=== PATIENT | female | born 1980 | race Caucasian/White ===

== ENCOUNTER 2016-07-30 09:39 | Outpatient (CLI) | payer OTHER ==
--- NOTE | 2016-07-30 09:58 | ER Document Report ---
ED Medical Screen (RME) - General Stated Complaint: SHORTNESS OF BREATH, ABNORMAL LABS Time seen by provider: 09:56 Mode of Arrival: Ambulatory Information source: Patient Notes: 36-year-old female presents to ED for anemia. Her surgery was canceled due to the low H&H. She states that her her hemoglobin was 5.8. She was supposed to have surgery for to remove fibroid uterus which they canceled she states she's having excessive vaginal bleeding. States they started her on control and iron pills. I have greeted and performed a rapid initial assessment of this patient. A comprehensive ED assessment and evaluation of the patient, analysis of test results and completion of medical decision making process will be conducted by an additional ED providers. - Related Data Allergies/Adverse Reactions: No Known Allergies Allergy (Unverified 07/30/16 09:56) Physical Exam - Vital signs Vitals: Temp Pulse Resp BP Pulse Ox 97.6 F 82 14 128/84 H 100 07/30/16 09:42 07/30/16 09:42 07/30/16 09:42 07/30/16 09:42 07/30/16 09:42 Course - Vital Signs Vital signs: Temp Pulse Resp BP Pulse Ox 97.6 F 82 14 128/84 H 100 07/30/16 09:42 07/30/16 09:42 07/30/16 09:42 07/30/16 09:42 07/30/16 09:42
[2016-07-30 10:32] LABS: APPEARANCE,URINE SLIGHTLY-CLOUDY; BILIRUBIN,URINE NEGATIVE (NEGATIVE); GLUCOSE, URINE NEGATIVE (NEGATIVE); KETONES,URINE NEGATIVE (NEGATIVE); LEUKOCYTE ESTERASE,URINE MODERATE (NEGATIVE); NITRITE,URINE NEGATIVE (NEGATIVE); PROTEIN,URINE NEGATIVE (NEGATIVE); URINE SPECIFIC GRAVITY 1.014; UROBILINOGEN,URINE NEGATIVE mg/dL (<2.0)
[2016-07-30 10:39] LABS: ABSOLUTE EOSINOPHILS # (AUTO) 0.1 10^3/uL (0.0-0.6); ABSOLUTE LYMPHOCYTES (AUTO) 1.5 10^3/uL (0.5-4.7); ABSOLUTE MONOCYTES (AUTO) 0.4 10^3/uL (0.1-1.4); ABSOLUTE NEUT (AUTO) 2.9 10^3/uL (1.7-8.2); BASOPHILS % (AUTO) 0.8 % (0-2); EOSINOPHILS % (AUTO) 2.5 % (0-6); HEMATOCRIT 22.6 % (36.0-47.0); HGB HCT DIFFERENCE -3.7; LYMPHOCYTES % (AUTO) 29.8 % (13-45); MEAN CORPUSCULAR HEMOGLOBIN 15.2 pg (27.0-33.4); MONOCYTES % (AUTO) 8.9 % (3-13); RED BLOOD COUNT 4.18 10^6/uL (3.72-5.28); RED CELL DISTRIBUTION WIDTH 20.7 % (11.5-14.0)
[2016-07-30 10:49] LABS: MEAN CORPUSCULAR VOLUME 54 fl (80-97)
[2016-07-30 10:53] LABS: ALANINE AMINOTRANSFERASE 31 U/L (9-52); ALBUMIN 4.4 g/dL (3.5-5.0); ALKALINE PHOSPHATASE 50 U/L (38-126); ANION GAP 9 (5-19); ASPARTATE AMINO TRANSFERASE 19 U/L (14-36); BLOOD UREA NITROGEN 13 mg/dL (7-20); CALCIUM 9.7 mg/dL (8.4-10.2); CARBON DIOXIDE 24 mmol/L (22-30); CHLORIDE 106 mmol/L (98-107); CREATININE RESULT 0.61 mg/dL (0.52-1.25); GLUCOSE 92 mg/dL (75-110); POTASSIUM 4.7 mmol/L (3.6-5.0); SODIUM 138.5 mmol/L (137-145); TOTAL PROTEIN 7.6 g/dL (6.3-8.2)
[2016-07-30 11:14] LABS: HEMOGLOBIN 6.3 g/dL (12.0-15.5)
[2016-07-30 11:15] LABS: ACANTHOCYTES SLIGHT; ANISOCYTOSIS 2+; HYPOCHROMASIA 4+; MICROCYTOSIS 4+; OVALOCYTES 1+; POIKILOCYTOSIS 1+; POLYCHROMASIA SLIGHT; ROULEAUX 1+; SCHISTOCYTES SLIGHT
--- NOTE | 2016-07-30 11:50 | ER Document Report ---
ED General - General Mode of Arrival: Ambulatory Information source: Patient TRAVEL OUTSIDE OF THE [place] IN LAST 30 DAYS: No - HPI Onset: Other - see HPI note <LALITHA DOCKERY - Last Filed: 07/30/16 15:38> <ILYA TRIANA - Last Filed: 08/14/16 05:51> - General Chief Complaint: Abnormal Lab Results Stated Complaint: SHORTNESS OF BREATH, ABNORMAL LABS Notes: Patient is a 36-year-old female presenting to the emergency department for abnormal lab results. Patient states that she was supposed to have surgery today and her labs came back abnormal with a 8 PT of 5.8. Patient surgery was canceled due to this abnormality. Patient states she was told to take iron and control pills. Patient has had increased fatigue and shortness of breath when completing activities. Patient states she took some iron over the last couple of days. Patient has had a transfusion in the past and has a history of anemia. Patient has no known allergies. (LALITHA DOCKERY) - Related Data Allergies/Adverse Reactions: No Known Allergies Allergy (Unverified 07/30/16 09:56) Home Medications: Current Home Medications No Home Medications 07/30/16 [History] Past Medical History - General Information source: Patient - Social History Smoking Status: Never Smoker Cigarette use (# per day): No Chew tobacco use (# tins/day): No Frequency of alcohol use: None Drug Abuse: None Family History: None Patient has suicidal ideation: No Patient has homicidal ideation: No - Medical History Medical History: Other - anemia - Immunizations Hx Diphtheria, Pertussis, Tetanus Vaccination: Yes <LALITHA DOCKERY - Last Filed: 07/30/16 15:38> Review of Systems - Review of Systems Constitutional: See HPI, Malaise, Weakness EENT: No symptoms reported Cardiovascular: No symptoms reported Respiratory: See HPI, Short of breath Gastrointestinal: No symptoms reported Genitourinary: No symptoms reported Female Genitourinary: No symptoms reported Musculoskeletal: No symptoms reported Skin: No symptoms reported Hematologic/Lymphatic: No symptoms reported Neurological/Psychological: No symptoms reported -: Yes All other systems reviewed and negative <LALITHA DOCKERY - Last Filed: 07/30/16 15:38> Physical Exam - Vital signs Interpretation: Normal - General General appearance: Alert, Other - weak appearing In distress: Mild - HEENT Head: Normocephalic, Atraumatic Eyes: Normal Pupils: PERRL Mucous membranes: Moist - Respiratory Respiratory status: No respiratory distress Chest status: Nontender Breath sounds: Normal Chest palpation: Normal - Cardiovascular Rhythm: Regular Heart sounds: Normal auscultation Murmur: No - Abdominal Inspection: Normal Distension: No distension Bowel sounds: Normal Tenderness: Nontender Organomegaly: No organomegaly - Back Back: Normal, Nontender - Extremities General upper extremity: Normal inspection, Normal ROM, Normal strength General lower extremity: Normal inspection, Normal ROM, Normal strength - Neurological Neuro grossly intact: Yes Cognition: Normal Orientation: AAOx4 [place] Coma Scale Eye Opening: Spontaneous [place] Coma Scale Verbal: Oriented [place] Coma Scale Motor: Obeys Commands [place] Coma Scale Total: 15 Speech: Normal - Psychological Associated symptoms: Normal affect, Normal mood - Skin Skin Temperature: Warm Skin Moisture: Dry <LALITHA DOCKERY - Last Filed: 07/30/16 15:38> Course - Laboratory Result Diagrams: 07/30/16 10:10 07/30/16 10:10 <LALITHA DOCKERY - Last Filed: 07/30/16 15:38> - Laboratory Result Diagrams: 07/30/16 10:10 07/30/16 10:10 <ILYA TRIANA - Last Filed: 08/14/16 05:51> - Vital Signs Vital signs: Temp Pulse Resp BP Pulse Ox 97.6 F 82 14 128/84 H 100 07/30/16 09:42 07/30/16 09:42 07/30/16 09:42 07/30/16 09:42 07/30/16 09:42 - Laboratory Laboratory results interpreted by me: 07/30/16 07/30/16 10:10 10:10 Hgb 6.3 L Hct 22.6 L MCV 54 L MCH 15.2 L MCHC 28.0 L RDW 20.7 H Urine Blood SMALL H Ur Leukocyte Esterase MODERATE H Discharge <LALITHA DOCKERY - Last Filed: 07/30/16 15:38> <ILYA TRIANA - Last Filed: 08/14/16 05:51> - Discharge Condition: Stable Disposition: HOME, SELF-CARE Scribe Documentation - Scribe Written by Scribe:: Lalitha Dockery 07/30/16 15:47 acting as scribe for :: Charlie <LALITHA DOCKERY - Last Filed: 07/30/16 15:38>
[2016-07-30] MEDS ORDERED: NORMAL SALINE 250 ML IV PRN (13:42)
[2016-07-30] MEDS ORDERED: ACETAMINOPHEN 325 MG TABLET PO PRN (13:43)
[2016-07-30] MEDS ORDERED: DIPHENHYDRAMINE HCL 25 MG CAPSULE PO PRN (13:44)
[2016-07-30 17:02] VITALS: BP 114/80
== END 2016-07-30 17:02 | disposition home or self-care (01) ==
LOC: ER 09:39 → II 09:39 → EDSTATUS 12:37 → 5TH 12:38 → II 17:02
PROVIDERS: ATTEND Emergency Medicine
PROC: 30233N1 Transfusion of Nonautologous Red Blood Cells into Peripheral Vein, Percutaneous Approach (ICD-10-PCS; principal; 2016-07-30)
DX: D50.0 Iron deficiency anemia secondary to blood loss (chronic) (principal)
CPT/HCPCS: 86900; 86901; 36415; 36430; 86850; 84703; 85025; 80053; 81001; 86920; P9016; 99283

== ENCOUNTER 2016-08-22 19:44 | Emergency (ER) | payer OTHER ==
--- NOTE | 2016-08-22 20:20 | ER Document Report ---
ED Medical Screen (RME) - General Chief Complaint: Abdominal Pain Stated Complaint: ABDOMINAL PAIN TRAVEL OUTSIDE OF THE [place] IN LAST 30 DAYS: No - HPI Patient complains to provider of: left lower quadrant abdominal pain Notes: 08/22/16 20:19 Patient coming in with left lower quadrant abdominal pain history of fibroids was to have surgery for uterine fibroids however was delayed due to anemia and need for blood transfusion. Pain for last 3 days worse tonight. Last bowel movement today. - Related Data Allergies/Adverse Reactions: No Known Allergies Allergy (Unverified 07/30/16 09:56) Past Medical History Renal/ Medical History: Denies: Hx Peritoneal Dialysis - Immunizations Hx Diphtheria, Pertussis, Tetanus Vaccination: Yes Review of Systems - Review of Systems Gastrointestinal: Abdominal pain Physical Exam - Vital signs Vitals: Temp Pulse Resp BP Pulse Ox 98.4 F 80 16 151/96 H 100 08/22/16 19:53 08/22/16 19:53 08/22/16 19:53 08/22/16 19:53 08/22/16 19:53 - General General appearance: Appears well In distress: None Course - Vital Signs Vital signs: Temp Pulse Resp BP Pulse Ox 98.4 F 80 16 151/96 H 100 08/22/16 19:53 08/22/16 19:53 08/22/16 19:53 08/22/16 19:53 08/22/16 19:53
[2016-08-22 20:41] LABS: ABSOLUTE LYMPHOCYTES (AUTO) 1.8 10^3/uL (0.5-4.7); ABSOLUTE MONOCYTES (AUTO) 0.6 10^3/uL (0.1-1.4); ABSOLUTE NEUT (AUTO) 5.1 10^3/uL (1.7-8.2); BASOPHILS % (AUTO) 0.4 % (0-2); EOSINOPHILS % (AUTO) 0.4 % (0-6); HEMATOCRIT 33.3 % (36.0-47.0); HGB HCT DIFFERENCE -0.3; MEAN CORPUSCULAR HEMOGLOBIN 22.4 pg (27.0-33.4); MEAN CORPUSCULAR HGB CONC 33.1 g/dL (32.0-36.0); MONOCYTES % (AUTO) 7.4 % (3-13); RED BLOOD COUNT 4.93 10^6/uL (3.72-5.28); RED CELL DISTRIBUTION WIDTH 36.8 % (11.5-14.0); SEGMENTED NEUTROPHILS % (AUTO) 67.8 % (42-78); WHITE BLOOD COUNT 7.5 10^3/uL (4.0-10.5)
[2016-08-22 20:45] LABS: BILIRUBIN,URINE NEGATIVE (NEGATIVE); GLUCOSE, URINE NEGATIVE (NEGATIVE); KETONES,URINE NEGATIVE (NEGATIVE); LEUKOCYTE ESTERASE,URINE SMALL (NEGATIVE); NITRITE,URINE NEGATIVE (NEGATIVE); PROTEIN,URINE NEGATIVE (NEGATIVE); URINE SPECIFIC GRAVITY 1.013; UROBILINOGEN,URINE NEGATIVE mg/dL (<2.0)
[2016-08-22 20:48] LABS: APPEARANCE,URINE CLOUDY
[2016-08-22 20:51] LABS: MEAN CORPUSCULAR VOLUME 68 fl (80-97)
[2016-08-22 20:59] LABS: ALANINE AMINOTRANSFERASE 22 U/L (9-52); ALBUMIN 4.3 g/dL (3.5-5.0); ALKALINE PHOSPHATASE 38 U/L (38-126); ANION GAP 11 (5-19); ASPARTATE AMINO TRANSFERASE 19 U/L (14-36); BILIRUBIN,DIRECT 0.2 mg/dL (0.0-0.4); BILIRUBIN,TOTAL 1.1 mg/dL (0.2-1.3); BLOOD UREA NITROGEN 11 mg/dL (7-20); CALCIUM 9.4 mg/dL (8.4-10.2); CARBON DIOXIDE 23 mmol/L (22-30); CHLORIDE 108 mmol/L (98-107); CREATININE RESULT 0.59 mg/dL (0.52-1.25); GLUCOSE 101 mg/dL (75-110); LIPASE 155.3 U/L (23-300); POTASSIUM 4.4 mmol/L (3.6-5.0); SODIUM 142.4 mmol/L (137-145); TOTAL PROTEIN 7.5 g/dL (6.3-8.2)
[2016-08-22 21:12] LABS: ANISOCYTOSIS 3+; HYPOCHROMASIA 2+; MICROCYTOSIS 2+; OVALOCYTES 1+; POIKILOCYTOSIS 1+
[2016-08-22 21:13] LABS: ROULEAUX SLIGHT
[2016-08-22] MEDS ORDERED: OXYCODONE-ACETAMINOPHEN 5-325 MG TABLET PO ONE (22:45)
--- NOTE | 2016-08-22 22:46 | ER Document Report ---
ED General - General Chief Complaint: Abdominal Pain Stated Complaint: ABDOMINAL PAIN Notes: Patient is a 36-year-old female past medical history of a large uterine fibroids who is scheduled for resection of those fibroids in the coming weeks who presents with 3 days of constant, aching, moderate severity pain to the left lower abdomen. She has seen her primary care doctor regarding this concern and was given a dose of Toradol she states mildly helped her pain. Nothing worsens her pain. She has had associated vaginal bleeding. States she' s had some other symptoms in the past related to her uterine fibroids. She denies any dysuria, vomiting, pain in any other location of her abdomen or fever. TRAVEL OUTSIDE OF THE [place] IN LAST 30 DAYS: No - Related Data Allergies/Adverse Reactions: No Known Allergies Allergy (Unverified 07/30/16 09:56) Home Medications: Current Home Medications Ferrous Sulfate [Iron] 325 mg PO BID 08/22/16 [History] RX: Ethynodiol D-Ethinyl Estradiol [Kelnor 1-35 28 Tablet] 1 tab PO DAILY [History] Past Medical History - General Information source: Patient - Social History Smoking Status: Never Smoker Frequency of alcohol use: None Drug Abuse: None Lives with: Spouse/Significant other Family History: Reviewed & Not Pertinent Patient has suicidal ideation: No Patient has homicidal ideation: No Renal/ Medical History: Denies: Hx Peritoneal Dialysis Surgical Hx: Negative - Immunizations Hx Diphtheria, Pertussis, Tetanus Vaccination: Yes Review of Systems - Review of Systems Notes: Constitutional: Negative for fever. HENT: Negative for sore throat. Eyes: Negative for visual changes. Cardiovascular: Negative for chest pain. Respiratory: Negative for shortness of breath. Gastrointestinal: Negative for abdominal pain, vomiting or diarrhea. Genitourinary: Negative for dysuria. Musculoskeletal: Negative for back pain. Skin: Negative for rash. Neurological: Negative for headaches, weakness or numbness. 10 point ROS negative except as marked above and in HPI. Physical Exam - Vital signs Vitals: Temp Pulse Resp BP Pulse Ox 98.4 F 80 16 151/96 H 100 08/22/16 19:53 08/22/16 19:53 08/22/16 19:53 08/22/16 19:53 08/22/16 19:53 Interpretation: Hypertensive Notes: PHYSICAL EXAMINATION: GENERAL: Well-appearing, well-nourished and in no acute distress. HEAD: Atraumatic, normocephalic. EYES: Pupils equal round and reactive to light, extraocular movements intact, sclera anicteric, conjunctiva are normal. ENT: nares patent, oropharynx clear without exudates. Moist mucous membranes. NECK: Normal range of motion, supple without lymphadenopathy LUNGS: Breath sounds clear to auscultation bilaterally and equal. No wheezes rales or rhonchi. HEART: Regular rate and rhythm without murmurs ABDOMEN: Soft, mild suprapubic and slight left adnexal discomfort normoactive bowel sounds. No guarding, no rebound. No masses appreciated. EXTREMITIES: Normal range of motion, no pitting or edema. No cyanosis. NEUROLOGICAL: No focal neurological deficits. Moves all extremities spontaneously and on command. PSYCH: Normal mood, normal affect. SKIN: Warm, Dry, normal turgor, no rashes or lesions noted. Course - Re-evaluation Re-evalutation: 08/22/16 22:45 Patient presents with left adnexal left lower quadrant abdominal pain that has been present for the past 3 days unchanged today. Has history of the same and is scheduled for fibroid resection secondary to this ongoing pain. Her anemia is much improved relative to the last check this lab back in July. She is otherwise well in appearance without any focal rebound or guarding. Vitals within normal limits. Ultrasound demonstrates a right ovarian cyst, left ovary has not been visualized but does show large fibroid of the uterus. Patient quickly history is not consistent with acute ovarian torsion she has had this pain consistently for the past 3 days and has been unchanged. Although the left ovary was not visualized, I did not believe her exam and history is concerning enough for an acute ovarian torsion to emergently consult [facility]. I do not believe patient requires a CT of her abdomen is again her history does not suggest an acute diverticulitis, mesenteric ischemia, bowel obstruction or bowel perforation.At this time will discharge with return precautions and follow -up recommendations. Verbal discharge instructions given a the bedside and opportunity for questions given. Medication warnings reviewed. Patient is in agreement with this plan and has verbalized understanding of return precautions and the need for primary care follow-up in the next 24-72 hours. - Vital Signs Vital signs: Temp Pulse Resp BP Pulse Ox 98.4 F 68 17 125/73 98 08/22/16 19:53 08/22/16 23:31 08/22/16 23:31 08/22/16 23:31 08/22/16 23:31 - Laboratory Result Diagrams: 08/22/16 20:20 08/22/16 20:20 Laboratory results interpreted by me: 08/22/16 08/22/16 08/22/16 20:20 20:20 20:20 Hgb 11.0 L Hct 33.3 L MCV 68 L D MCH 22.4 L RDW 36.8 H Chloride 108 H Urine Blood LARGE H Ur Leukocyte Esterase SMALL H - Diagnostic Test Radiology reviewed: Reports reviewed Discharge - Discharge Clinical Impression: Left lower quadrant abdominal pain of unknown etiology Uterine fibroid Qualifiers: Uterine leiomyoma location: unspecified location Qualified Code(s): D25.9 - Leiomyoma of uterus, unspecified Condition: Good Disposition: HOME, SELF-CARE Additional Instructions: You have been seen in the Emergency Department (ED) for abdominal pain. Your evaluation did not identify a clear cause of your symptoms but was generally reassuring. Ultrasound shows ongoing uterine fibroids which are likely related to your pain today. Please follow-up with her [facility] PSYCHOLOGIST regarding this ongoing abdominal pain. Please follow up with your doctor as soon as possible regarding today's emergent visit and the symptoms that are bothering you. Return to the ED if your abdominal pain worsens or fails to improve, you develop bloody vomiting, bloody diarrhea, you are unable to tolerate fluids due to vomiting, fever greater than 101, or other symptoms that concern you. Referrals: HANNAH BARAHOAN MD [Primary Care Provider] - Follow up as needed
[2016-08-22] MEDS ORDERED: KETOROLAC TROMETHAMINE 60 MG/2 ML SDV IM ONE (22:56)
[2016-08-22] MEDS ORDERED: KETOROLAC TROMETHAMINE 60 MG/2 ML SDV ONE (22:59)
[2016-08-23 00:09] VITALS: BP 125/73
== END 2016-08-22 23:33 | disposition home or self-care (01) ==
LOC: ER 19:44
DX: R10.32 Left lower quadrant pain (principal); D25.9 Leiomyoma of uterus, unspecified; Z79.899 Other long term (current) drug therapy
CPT/HCPCS: 99284; 96372; 36415; 84702; 83690; 85025; 80053; 81001; 76856; 93976; J1885

== ENCOUNTER 2018-02-12 20:37 | Emergency (ER) | payer OTHER ==
--- NOTE | 2018-02-12 22:14 | RADIOLOGY REPORT (SQ) ---
Right hand three view on 02/12/2018 at 9:47 PM Clinical indications: Right hand injury, pain COMPARISON: None FINDINGS: There are no fractures. Visualized joints are well aligned. No bony abnormality is noted. IMPRESSION: No acute bony abnormality.
[2018-02-12] MEDS ORDERED: DIPH/PERTUSS(ACELL)/TETANUS VAC/PF 0.5 ML SYR (>=10YO) IM ONE (22:36)
--- NOTE | 2018-02-12 22:38 | ER Document Report ---
HPI - HPI Pain Level: 4 Notes: Patient is an otherwise healthy 37-year-old female who presents with chief complaint of laceration to the dorsal surface of her right hand. Patient reports that while she was at work she crushed her hand between 2 metal carts that were carrying cakes. Tdap not up to date. - CONSTITUTIONAL Constitutional: DENIES: Fever, Chills - EENT EENT: DENIES: Sore Throat, Ear Pain, Eye problems - NEURO Neurology: DENIES: Headache, Weakness, Vision blurred, Dizzinesss / Vertigo - CARDIOVASCULAR Cardiovascular: DENIES: Chest pain - RESPIRATORY Respiratory: DENIES: Trouble Breathing, Coughing - GASTROINTESTINAL Gastrointestinal: DENIES: Abdominal Pain, Black / Bloody Stools - URINARY Urinary: DENIES: Dysuria, Urgency, Frequency - REPRODUCTIVE Reproductive: DENIES: : - MUSCULOSKELETAL Musculoskeletal: DENIES: Extremity pain Past Medical History - General Information source: Patient - Social History Smoking Status: Never Smoker Chew tobacco use (# tins/day): No Frequency of alcohol use: None Drug Abuse: None Family History: Reviewed & Not Pertinent Patient has suicidal ideation: No Patient has homicidal ideation: No - Medical History Medical History: Negative Renal/ Medical History: Denies: Hx Peritoneal Dialysis Surgical Hx: Negative - Immunizations Hx Diphtheria, Pertussis, Tetanus Vaccination: Yes Vertical Provider Document - CONSTITUTIONAL Notes: PHYSICAL EXAMINATION: GENERAL: Well-appearing, well-nourished and in no acute distress. HEAD: Atraumatic, normocephalic. EYES: Pupils equal round extraocular movements intact, conjunctiva are normal. ENT: Nares patent NECK: Normal range of motion LUNGS: No respiratory distress Musculoskeletal: Normal range of motion. Cap refill less than 3 seconds, normal motor and sensation distal to injury. NEUROLOGICAL: Normal speech, normal gait. PSYCH: Normal mood, normal affect. SKIN: Warm, Dry, normal turgor, no rashes or lesions noted. 1 cm laceration noted to patient's right hand on the dorsal surface. Wound is well approximated , no active bleeding noted. - INFECTION CONTROL TRAVEL OUTSIDE OF THE [place] IN LAST 30 DAYS: No Course - Re-evaluation Re-evalutation: X-rays negative for any acute findings. Patient declined sutures or prophylactic antibiotics, agress to TDAP. Patient reports that she was mostly concerned that there could be a fracture. Laceration will be repaired with Dermabond. - Vital Signs Vital signs: Temp Pulse Resp BP Pulse Ox 98.4 F 71 20 121/84 99 02/12/18 20:50 02/12/18 20:50 02/12/18 20:50 02/12/18 20:50 02/12/18 20:50 Procedures - Laceration/Wound Repair right hand Wound length (cm): 1 Wound's Depth, Shape: Superficial Laceration pre-procedure: Sterile PPE donned Anesthetic type: 1% Lidocaine Wound explored: Clean Wound Repaired With: Dermabond Complications: No Discharge - Discharge Clinical Impression: Laceration Hand injury Qualifiers: Encounter type: initial encounter Laterality: right Qualified Code(s): S69.91XA - Unspecified injury of right wrist, hand and finger(s), initial encounter Condition: Stable Disposition: HOME, SELF-CARE Additional Instructions: Contusion Your injury has resulted in a contusion -- a crushing of the deep tissues. No injury to important structures was detected during the physician's exam. Contusions vary in the amount of pain they cause, and in the length of time required for healing. Typically, the area will become bruised, and will remain painful to touch for two or three weeks. However, most patients are back to working and playing within a few days. After the initial period of rest and cold-packs, your symptoms (together with the doctor's recommendations) will determine how rapidly you can get back to full activity. Usually this means "do what feels okay, but don't do things that hurt." If re-examination was recommended, it's important to follow up as instructed. Call the doctor or return any time if pain increases, if swelling becomes severe, if you develop numbness or weakness in an injured extremity, or if any other alarming symptoms occur. Dermabond (Skin Adhesive Closure) Skin adhesive (such as Dermabond) is a quick-drying glue that remains slightly flexible while it holds wound edges together. It can substitute for stitches on some cuts. The film will usually fall off the skin after 5 to 10 days. Keep the wound area clean and dry. Do not soak or scrub the wound. Don't swim. You can shower briefly after 24 hours. Gently blot the area dry with a soft towel. Don't apply ointments. If there is a dressing, change it immediately if it gets wet. Do not place tape directly over the adhesive film, because the tape may pull the film off your skin as you remove it. Don't bump the wound area. If there's risk of injury, keep the area well- padded. Avoid stretching of the skin. Do not scratch or pick at the adhesive film. Avoid prolonged exposure to sunlight or tanning lamps. Return if there is increasing pain, swelling, redness, or drainage, or if the wound edges seem to open or separate. Tetanus Immunization Given You have been given an immunization against tetanus. Please record this in your records. In general, a booster is needed only once every 10 years. The tetanus shot protects against tetanus or "lockjaw," which is a complication of certain wound infections (the tetanus shot cannot protect against the actual infection). The immunization site may become warm and red due to local reaction. If this occurs, apply warm compresses and take aspirin or ibuprofen to reduce inflammation and discomfort. Return for evaluation if the reaction becomes severe. Forms: Return to Work Referrals: HANNAH BARAHONA MD [Primary Care Provider] - Follow up as needed
[2018-02-12 22:46] VITALS: BP 127/91
== END 2018-02-12 22:52 | disposition home or self-care (01) ==
LOC: ER 20:37
DX: S61.411A Laceration without foreign body of right hand, initial encounter (principal); W23.0XXA Caught, crushed, jammed, or pinched between moving objects, initial encounter; Y99.0 Civilian activity done for income or pay
CPT/HCPCS: 90471; 90715; 99283